=== PATIENT | male | born 1955 | race Caucasian/White ===

== ENCOUNTER 2019-07-01 19:53 | Inpatient (IN) ==
[2019-07-01] MEDS ORDERED: Aspirin 81 MG TAB.CHEW PO ONE (20:19)
[2019-07-01 20:39] LABS: Basophils % 0.2 %; Eosinophils % 0.2 %; Hematocrit 40.8 % (37.5-50.1); Hemoglobin 14.4 g/dL (12.9-16.9); Immature Granulocytes % 0.4 % (0-4); Lymphocytes % 10.2 %; Mean Corpuscular HGB Conc 35.3 g/dL (31.6-35.5); Mean Corpuscular Hemoglobin 32.8 pg (28.0-33.3); Mean Corpuscular Volume 92.9 fL (83.0-100.0); Mean Platelet Volume 10.3 fL (9.4-12.4); Monocytes # 0.6 K/mcL (0.0-1.3); Monocytes % 5.7 %; Neutrophils # 8.5 K/mcL (1.6-8.9); Platelet Count 234 K/mcL (140-400); Red Blood Count 4.39 M/mcL (4.19-5.50); Red Cell Distribution Width 12.5 % (11.5-14.5); Segmented Neutrophils % 83.3 %; White Blood Count 10.2 K/mcL (4.3-11.1)
[2019-07-01 20:42] LABS: INR 1.1; Prothrombin Time 12.9 Seconds (9.4-12.1)
[2019-07-01 20:45] LABS: Activated Partial Thrombo Time 30.4 Seconds (26.0-36.0)
[2019-07-01] MEDS ORDERED: methylPREDNISolone 125 MG/2 ML VIAL IVP ONE ×2 (20:46→21:31)
[2019-07-01] MEDS ORDERED: Ipratropium/Albuterol Neb 3 ML IH STA (20:47)
[2019-07-01 20:59] LABS: BUN/Creatinine Ratio 15 (6-26); Blood Urea Nitrogen 15 mg/dL (8-23); Calcium 9.3 mg/dL (8.6-10.3); Carbon Dioxide 29 mEq/L (23-29); Chloride 98 mEq/L (98-107); Glucose 106 mg/dL (70-105); Osmolality,Calculated 289 (280-300); Potassium 2.8 mEq/L (3.5-5.1); Sodium 139 mEq/L (136-145); eGFR For African Americans > 60 (> 60); eGFR For Non-African Americans > 60 (> 60)
[2019-07-01 21:00] LABS: Troponin I < 0.03 ng/mL (< 0.04)
[2019-07-01] MEDS ORDERED: Nitroglycerin 0.4 MG TAB.SUBL SL PRN (21:51)
[2019-07-01] MEDS: Nitroglycerin 0.4 MG TAB.SUBL SL PRN ×3 (21:59→22:41)
[2019-07-01] MEDS ORDERED: *HR* FentaNYL (PF) 100 MCG/2 ML VIAL IVP ONE (22:41)
[2019-07-02] MEDS ORDERED: Naloxone 0.4 MG/ML INJ IVP PRN (05:05)
[2019-07-02] MEDS ORDERED: Morphine Sulfate 2 MG/ML SYRINGE IVP PRN (05:08)
[2019-07-02] MEDS ORDERED: Potassium Chloride 40 MEQ, Lidocaine 1% 2 ML in 0.9 % Sodium Chloride 500 ML IVPB ONE (05:10)
[2019-07-02] MEDS ORDERED: Albuterol 2.5 MG/3 ML NEBULIZER IH PRN (05:11)
[2019-07-02] MEDS: Azithromycin 500 MG in 0.9 % Sodium Chloride 250 ML IVPB SCH (05:39)
[2019-07-02] MEDS: *HR* Heparin 5,000 UNIT/ML VIAL SQ SCH ×2 (06:43→17:39)
[2019-07-02] MEDS ORDERED: Regadenoson 0.4 MG/5 ML SYRINGE IVP ONE (09:08)
[2019-07-02] MEDS: Nitroglycerin 0.4 MG TAB.SUBL SL PRN (11:40)
[2019-07-02] MEDS: Ipratropium/Albuterol Neb 3 ML IH SCH ×3 (11:43→22:13)
[2019-07-02 14:16] LABS: Hematocrit 40.2 % (37.5-50.1); Hemoglobin 13.6 g/dL (12.9-16.9); Mean Corpuscular HGB Conc 33.8 g/dL (31.6-35.5); Mean Corpuscular Hemoglobin 32.3 pg (28.0-33.3); Mean Corpuscular Volume 95.5 fL (83.0-100.0); Mean Platelet Volume 10.5 fL (9.4-12.4); Platelet Count 228 K/mcL (140-400); Red Blood Count 4.21 M/mcL (4.19-5.50); Red Cell Distribution Width 12.6 % (11.5-14.5); White Blood Count 7.5 K/mcL (4.3-11.1)
[2019-07-02] MEDS ORDERED: Ketorolac 30 MG/ML VIAL IVP ONE (14:36)
[2019-07-02] MEDS: predniSONE 20 MG TABLET PO SCH (14:38)
[2019-07-02] MEDS ORDERED: Famotidine 20 MG TABLET PO PRN (14:51)
[2019-07-02 15:33] LABS: BUN/Creatinine Ratio 22 (6-26); Blood Urea Nitrogen 17 mg/dL (8-23); Calcium 9.2 mg/dL (8.6-10.3); Carbon Dioxide 27 mEq/L (23-29); Chloride 104 mEq/L (98-107); Glucose 159 mg/dL (70-105); Osmolality,Calculated 293 (280-300); Potassium 3.6 mEq/L (3.5-5.1); Sodium 139 mEq/L (136-145); Troponin I < 0.03 ng/mL (< 0.04); eGFR For African Americans > 60 (> 60); eGFR For Non-African Americans > 60 (> 60)
[2019-07-02 17:43] LABS: Adenovirus Not Detected (Not Detect); Bordetella Pertussis Not Detected (Not Detect); Chlamydophila pneumoniae Not Detected (Not Detect); Coronavirus 229E Not Detected (Not Detect); Coronavirus HKU1 Not Detected (Not Detect); Coronavirus NL63 Not Detected (Not Detect); Coronavirus OC43 Not Detected (Not Detect); Human Metapneumovirus Not Detected (Not Detect); Human Rhinovirus/Enterovirus DETECTED (Not Detect); Influenza A Subtype 2009 H1 Not Detected (Not Detect); Influenza A Untypeable Not Detected (Not Detect); Influenza B Not Detected (Not Detect); Parainfluenza Virus 1 Not Detected (Not Detect); Parainfluenza Virus 2 Not Detected (Not Detect); Parainfluenza Virus 3 Not Detected (Not Detect); Parainfluenza Virus 4 Not Detected (Not Detect); Respiratory Syncytial Virus DETECTED (Not Detect)
[2019-07-02 17:44] LABS: Mycoplasma pneumoniae Not Detected (Not Detect)
[2019-07-03] MEDS: Ipratropium/Albuterol Neb 3 ML IH SCH ×4 (04:02→22:22)
[2019-07-03] MEDS: *HR* Heparin 5,000 UNIT/ML VIAL SQ SCH ×2 (05:39→18:33)
[2019-07-03] MEDS: Azithromycin 500 MG in 0.9 % Sodium Chloride 250 ML IVPB SCH (05:41)
[2019-07-03] MEDS: predniSONE 20 MG TABLET PO SCH (12:01)
[2019-07-03] MEDS ORDERED: Acetaminophen 325 MG TABLET PO PRN (12:13)
[2019-07-03] MEDS: Ibuprofen 800 MG TABLET PO PRN (21:45)
[2019-07-04] MEDS: Ipratropium/Albuterol Neb 3 ML IH SCH ×2 (03:48→10:49)
[2019-07-04] MEDS: *HR* Heparin 5,000 UNIT/ML VIAL SQ SCH (05:13)
[2019-07-04 07:21] VITALS: BP 100/67
[2019-07-04] MEDS: predniSONE 20 MG TABLET PO SCH (08:33)
[2019-07-04] MEDS: Ibuprofen 800 MG TABLET PO PRN (08:33)
[2019-07-04] MEDS ORDERED: Azithromycin 250 MG TABLET PO SCH (09:00)
== END 2019-07-04 14:20 | disposition home or self-care (01) | DRG 144 ==
LOC: EMEROOARM 19:53 → 3ANU 19:53 → 2NENU 07-02 05:16 → SUATTDRO 07-03 15:27
PROVIDERS: ADMIT Internal Medicine; ATTEND Internal Medicine

== ENCOUNTER 2021-08-16 15:34 | Observation (INO) ==
[2021-08-16] MEDS ORDERED: Isovue-370 500 ML BOTTLE IVP ONE (16:35)
[2021-08-16 17:07] LABS: Basophils % 0.1 %; Eosinophils % 0.1 %; Hematocrit 41.8 % (37.5-50.1); Hemoglobin 14.1 g/dL (12.9-16.9); Immature Granulocytes % 0.8 % (0-4); Lymphocytes # 1.6 K/mcL (0.6-4.6); Lymphocytes % 11.8 %; Mean Corpuscular HGB Conc 33.7 g/dL (31.6-35.5); Mean Corpuscular Volume 94.8 fL (83.0-100.0); Mean Platelet Volume 10.3 fL (9.4-12.4); Monocytes # 1.1 K/mcL (0.0-1.3); Monocytes % 8.1 %; Neutrophils # 10.8 K/mcL (1.6-8.9); Platelet Count 293 K/mcL (140-400); Red Blood Count 4.41 M/mcL (4.19-5.50); Red Cell Distribution Width 12.1 % (11.5-14.5); Segmented Neutrophils % 79.1 %; White Blood Count 13.7 K/mcL (4.3-11.1)
[2021-08-16 17:21] LABS: Alanine Aminotransferase 24 Units/L (7-52); Albumin 4.3 g/dL (3.5-5.7); Albumin/Globulin Ratio 1.2 (1.1-2.2); Alkaline Phosphatase 94 Units/L (34-104); Aspartate Amino Transferase 20 Units/L (13-39); BUN/Creatinine Ratio 23 (6-26); Bilirubin,Direct 0.2 mg/dL (0.0-0.2); Bilirubin,Indirect 0.5 mg/dL (0.0-1.0); Bilirubin,Total 0.7 mg/dL (0.3-1.0); Blood Urea Nitrogen 23 mg/dL (8-23); Calcium 9.5 mg/dL (8.6-10.3); Carbon Dioxide 26 mEq/L (23-29); Chloride 101 mEq/L (98-107); Globulin 3.6 g/dL (2.4-3.5); Glucose 105 mg/dL (70-105); Osmolality,Calculated 284 (280-300); Potassium 3.6 mEq/L (3.5-5.1); Sodium 135 mEq/L (136-145); Total Protein 7.9 g/dL (6.4-8.9); eGFR For African Americans > 60 (> 60); eGFR For Non-African Americans > 60 (> 60)
[2021-08-16] MEDS ORDERED: cefTRIAXone 1,000 MG in Water for inj. (sterile) 10 ML IVP ONE (19:54)
[2021-08-16] MEDS ORDERED: Melatonin 3 MG TABLET PO PRN (20:07)
[2021-08-16] MEDS ORDERED: Naloxone 0.4 MG/ML INJ IVP PRN (20:07)
[2021-08-16] MEDS ORDERED: Ondansetron 4 MG/2 ML VIAL IVP PRN (20:07)
[2021-08-16] MEDS ORDERED: Acetaminophen 325 MG TABLET PO PRN (20:07)
[2021-08-16] MEDS ORDERED: 0.9 % Sodium Chloride 1,000 ML IVC SCH (20:15)
[2021-08-16] MEDS: Vancomycin 1,250 MG/262.5 ML IV.SOLN IVPB SCH (22:08)
[2021-08-16] MEDS: Piperacillin/Tazobactam 3.375 GM in 0.9 % Sodium Chloride Mini Bag 100 ML IVPB SCH (23:40)
[2021-08-17 02:29] LABS: Hematocrit 40.9 % (37.5-50.1); Hemoglobin 13.5 g/dL (12.9-16.9); Mean Corpuscular Hemoglobin 31.7 pg (28.0-33.3); Mean Platelet Volume 10.3 fL (9.4-12.4); Platelet Count 293 K/mcL (140-400); Red Blood Count 4.26 M/mcL (4.19-5.50); Red Cell Distribution Width 12.2 % (11.5-14.5); White Blood Count 14.8 K/mcL (4.3-11.1)
[2021-08-17 02:49] LABS: BUN/Creatinine Ratio 24 (6-26); Blood Urea Nitrogen 18 mg/dL (8-23); Carbon Dioxide 26 mEq/L (23-29); Chloride 103 mEq/L (98-107); Glucose 110 mg/dL (70-105); Osmolality,Calculated 287 (280-300); Potassium 3.2 mEq/L (3.5-5.1); Sodium 137 mEq/L (136-145); eGFR For African Americans > 60 (> 60); eGFR For Non-African Americans > 60 (> 60)
[2021-08-17] MEDS: Piperacillin/Tazobactam 3.375 GM in 0.9 % Sodium Chloride Mini Bag 100 ML IVPB SCH ×2 (07:28→18:05)
[2021-08-17] MEDS ORDERED: *HR* HYDROmorphone (PF) 1 MG/ML SYRINGE IVP ONE (08:36)
[2021-08-17] MEDS ORDERED: Ipratropium/Albuterol Neb 3 ML IH PRN (10:46)
[2021-08-17] MEDS: Vancomycin 1,250 MG/262.5 ML IV.SOLN IVPB SCH ×2 (11:52→22:55)
[2021-08-17] MEDS ORDERED: Petrolatum, White OINT.PACK TP PRN (12:13)
[2021-08-17] MEDS: *HR* Heparin 5,000 UNIT/ML VIAL SQ SCH (18:05)
[2021-08-18] MEDS: Piperacillin/Tazobactam 3.375 GM in 0.9 % Sodium Chloride Mini Bag 100 ML IVPB SCH ×3 (01:08→17:41)
[2021-08-18] MEDS: *HR* Heparin 5,000 UNIT/ML VIAL SQ SCH ×2 (05:08→17:41)
[2021-08-18] MEDS ORDERED: Ipratropium/Albuterol Neb 3 ML IH PRN (07:50)
[2021-08-18] MEDS: Famotidine 20 MG TABLET PO SCH (09:06)
[2021-08-18] MEDS: Vancomycin 1,250 MG/262.5 ML IV.SOLN IVPB SCH (09:48)
[2021-08-18 10:13] LABS: Basophils % 0.2 %; Eosinophils # 0.1 K/mcL (0.0-0.6); Eosinophils % 1.5 %; Hematocrit 41.2 % (37.5-50.1); Hemoglobin 13.1 g/dL (12.9-16.9); Immature Granulocytes % 0.7 % (0-4); Lymphocytes # 1.3 K/mcL (0.6-4.6); Lymphocytes % 15.9 %; Mean Corpuscular HGB Conc 31.8 g/dL (31.6-35.5); Mean Corpuscular Hemoglobin 31.9 pg (28.0-33.3); Mean Corpuscular Volume 100.2 fL (83.0-100.0); Mean Platelet Volume 10.5 fL (9.4-12.4); Monocytes # 0.7 K/mcL (0.0-1.3); Monocytes % 7.7 %; Neutrophils # 6.2 K/mcL (1.6-8.9); Platelet Count 267 K/mcL (140-400); Red Blood Count 4.11 M/mcL (4.19-5.50); Red Cell Distribution Width 12.4 % (11.5-14.5); White Blood Count 8.4 K/mcL (4.3-11.1)
[2021-08-18 10:29] LABS: BUN/Creatinine Ratio 25 (6-26); Blood Urea Nitrogen 22 mg/dL (8-23); Calcium 9.1 mg/dL (8.6-10.3); Carbon Dioxide 31 mEq/L (23-29); Chloride 106 mEq/L (98-107); Glucose 105 mg/dL (70-105); Magnesium 2.1 mg/dL (1.6-2.6); Osmolality,Calculated 294 (280-300); Phosphorous 2.8 mg/dL (2.7-4.5); Potassium 3.3 mEq/L (3.5-5.1); Sodium 140 mEq/L (136-145); eGFR For African Americans > 60 (> 60); eGFR For Non-African Americans > 60 (> 60)
[2021-08-18] MEDS: Budesonide/Formoterol 160/4.5 1 PUFF INH IH SCH ×2 (11:33→20:01)
[2021-08-18] MEDS: Tiotropium 10 INH DOSE IH SCH (11:34)
[2021-08-18] MEDS: Vancomycin 1,500 MG/265 ML IV.SOLN IVPB SCH (22:50)
[2021-08-19] MEDS: Piperacillin/Tazobactam 3.375 GM in 0.9 % Sodium Chloride Mini Bag 100 ML IVPB SCH ×2 (00:48→09:04)
[2021-08-19 04:46] LABS: Basophils % 0.2 %; Eosinophils # 0.3 K/mcL (0.0-0.6); Eosinophils % 3.2 %; Hematocrit 35.9 % (37.5-50.1); Hemoglobin 11.9 g/dL (12.9-16.9); Immature Granulocytes % 0.6 % (0-4); Lymphocytes # 1.8 K/mcL (0.6-4.6); Lymphocytes % 20.7 %; Mean Corpuscular HGB Conc 33.1 g/dL (31.6-35.5); Mean Corpuscular Hemoglobin 33.1 pg (28.0-33.3); Mean Corpuscular Volume 99.7 fL (83.0-100.0); Mean Platelet Volume 10.6 fL (9.4-12.4); Monocytes # 0.7 K/mcL (0.0-1.3); Monocytes % 8.3 %; Neutrophils # 5.8 K/mcL (1.6-8.9); Platelet Count 265 K/mcL (140-400); Red Cell Distribution Width 12.3 % (11.5-14.5); White Blood Count 8.7 K/mcL (4.3-11.1)
[2021-08-19 05:13] LABS: BUN/Creatinine Ratio 21 (6-26); Blood Urea Nitrogen 19 mg/dL (8-23); Calcium 8.8 mg/dL (8.6-10.3); Carbon Dioxide 28 mEq/L (23-29); Chloride 106 mEq/L (98-107); Glucose 105 mg/dL (70-105); Magnesium 2.1 mg/dL (1.6-2.6); Osmolality,Calculated 291 (280-300); Phosphorous 3.6 mg/dL (2.7-4.5); Potassium 3.5 mEq/L (3.5-5.1); Sodium 139 mEq/L (136-145); eGFR For African Americans > 60 (> 60); eGFR For Non-African Americans > 60 (> 60)
[2021-08-19] MEDS: *HR* Heparin 5,000 UNIT/ML VIAL SQ SCH (05:51)
[2021-08-19 07:28] VITALS: BP 113/72; PULSE 71; TEMP 98.6; O2SAT 93
[2021-08-19] MEDS: Tiotropium 10 INH DOSE IH SCH (07:58)
[2021-08-19] MEDS: Budesonide/Formoterol 160/4.5 1 PUFF INH IH SCH (07:59)
[2021-08-19] MEDS: Famotidine 20 MG TABLET PO SCH (09:06)
[2021-08-19] MEDS: Vancomycin 1,500 MG/265 ML IV.SOLN IVPB SCH (09:06)
== END 2021-08-19 13:05 | disposition home or self-care (01) ==
LOC: EMEROOARM 15:34 → 3BNU 15:34 → SUATTDRO 20:21 → 3BNU 21:04
PROVIDERS: ADMIT Internal Medicine; ATTEND Internal Medicine